=== PATIENT | male | born 1935 | race Caucasian/White ===

== ENCOUNTER 2019-04-05 10:03 | Emergency (ER) | payer MEDICARE ==
[2019-04-05] MEDS ORDERED: SODIUM CHLORIDE 0.9% (FLUSH) 10 ML SYG IV PRN ×2 (10:15)
--- NOTE | 2019-04-05 10:20 | ED.PDOC ---
History of Present Illness - General Time Seen by Provider: 04/05/19 10:13 - History of Present Illness Initial Comments: Pt brought by the EMS for the evaluation of cardiac arrest , EMS got the call from the senior living that while suctioning from the trach pt became sob and bra dycardiac and unresponsive but when EMS reached over there pt was responsive , normal sinus rhythm on EKG strip , however pt complain of generalized abdominal pain Timing/Duration: 1/2 hour Allergies/Adverse Reactions: Allergies NO KNOWN ALLERGY Allergy (Verified 04/05/19 10:49) Review of Systems - Review of Systems Constitutional: States: no symptoms reported EENTM: States: no symptoms reported Respiratory: States: no symptoms reported Cardiology: States: no symptoms reported Gastrointestinal/Abdominal: States: abdominal pain Musculoskeletal: States: no symptoms reported Skin: States: no symptoms reported Neurological: States: no symptoms reported Hematologic/Lymphatic: States: no symptoms reported All other Systems: Reviewed and Negative Family Medical History - Family History Mother Family History: No Known Physical Exam - Physical Exam General Appearance: Alert, Anxious Eyes, Ears, Nose, Throat Exam: PERRL/EOMI Neck: non-tender, full range of motion, supple Respiratory: chest non-tender, decreased breath sounds Cardiovascular/Chest: regular rate, rhythm Gastrointestinal/Abdominal: tenderness Extremity: normal range of motion Neurologic: no motor/sensory deficits, alert, normal mood/affect Lymphatic: no adenopathy Progress - Progress Progress: 04/05/19 13:[address] Lance at [facility] who accepted the pt - EKG/XRAY/CT EKG: Sinus, no ST T wave changes XRAY: chest Xray Comments: Pneumothorax - Additional EKG/XRAY/Consults XRAY #2: chest Comments: Pneumothorax resolved Procedures - Chest Tube Right Upper Mid-Axillary Chest Chest Tube Procedure Prep: betadine prep, sterile drapes applied, sterile dressing applied Anesthesia: 1% Lidocaine [place] of Air [place]: Yes Tube Sutured to Skin: Yes Post Procedure CXR?: Yes Progress: Pneumothorax resolved after placing Chest Tube Departure - Departure Clinical Impression: Pneumothorax, SOB (shortness of breath) Disposition: Transfer to Hospital Condition: Fair Referrals: MELVA KHAN [Primary Care Provider] - 1-2 Weeks Critical Care Note - Critical Care Note Total Time (mins): 60
[2019-04-05] MEDS ORDERED: DICYCLOMINE HCL INJ 20 MG/2 ML AMP IM ONE (10:23)
--- NOTE | 2019-04-05 11:01 | RAD ---
EXAM DESCRIPTION: Chest,1 View CLINICAL HISTORY: 83 years Male, sob . Status post cardiac arrest, CPR. COMPARISON: Chest radiograph 04/03/2019 TECHNIQUE: AP portable chest. FINDINGS/IMPRESSION: Interval development of a large volume right-sided pneumothorax (occupying approximately 60% of right lung volume) with partial collapse of the right upper and lower lobes. The patient is rotated, limiting evaluation for mediastinal shift, however partial underlying tension pneumothorax component may be present (with mild leftward mediastinal shift). Mild subcutaneous emphysema along the right lower lateral chest. Left lower lung volume loss with hazy infiltrate which may represent atelectasis, pleural effusion, or pneumonia. Unchanged position of the tracheostomy tube. Prior sternotomy. The cardiac borders are obscured. No acute osseous abnormality. Critical finding: Large right-sided pneumothorax and possible need for right-sided chest tube was discussed with ED physician Dr. Joseph CARLSON via telephone at 04/05/2019 10:[address] Brandt Cortes. Electronically signed by: Brandt Cortes DO 04/05/2019 11:00 AM CDT
[2019-04-05] MEDS ORDERED: LIDOCAINE 2% 50 ML VIAL ONE (11:06)
[2019-04-05] MEDS ORDERED: MORPHINE SULFATE INJ 10 MG/ML VIAL ONE (11:50)
[2019-04-05] MEDS ORDERED: MORPHINE SULFATE INJ 10 MG/ML VIAL IV ONE ×3 (11:53→12:55)
--- NOTE | 2019-04-05 12:15 | RAD ---
EXAM DESCRIPTION: Chest,1 View CLINICAL HISTORY: 83 years Male, verify chest tube placement COMPARISON: Radiographs of the chest dated 04/05/2019. TECHNIQUE: AP radiograph of the chest was obtained. FINDINGS: Trachea is midline.The cardiomediastinal silhouette is mildly enlarged in size. The left hemithorax is not completely visualized and appears unchanged. Interval placement of right chest tube with improvement of the right-sided pneumothorax. There is persistent small pneumothorax peripherally. IMPRESSION: Interval placement of right chest tube with improvement of the right-sided pneumothorax. There is persistent small pneumothorax peripherally. Electronically signed by: Diana Kinsey MD 04/05/2019 12:14 PM CDT
[2019-04-05] MEDS ORDERED: PIPERACILLIN/TAZOBACTAM 4.5 GM in SODIUM CHLORIDE 0.9% 100ML 100 ML IVPB ONE (12:25)
[2019-04-05] MEDS ORDERED: PIPERACILLIN/TAZOBACTAM 3.375 GM in SODIUM CHLORIDE 0.9% 100ML 100 ML IVPB ONE (12:28)
--- NOTE | 2019-04-05 12:36 | RAD ---
EXAM: Chest,1 View CLINICAL INDICATION: Chest tube COMPARISON: Previous study same date FINDINGS: A single view of the chest was obtained which is limited because the left side of the chest is not included on the film. A right-sided chest tube is noted. The heart is mildly enlarged and the pulmonary vessels are mildly prominent. Post-CABG surgical changes are noted. A tracheostomy is noted. There is no pneumothorax. IMPRESSION: Limited study. Right-sided chest tube noted. Electronically signed by: Malcolm Arteaga MD 04/05/2019 12:34 PM CDT
[2019-04-05 12:46] VITALS: TEMP 98.6; O2SAT 99
[2019-04-05] MEDS ORDERED: PIPERACILLIN/TAZOBACTAM 3.375 GM VIAL IVPB ONE (12:58)
[2019-04-05] MEDS ORDERED: SODIUM CHLORIDE 0.9% 100ML 100 ML IVPB ONE (12:59)
[2019-04-05 13:40] VITALS: BP 114/72
== END 2019-04-05 13:17 | disposition short-term general hospital (02) ==
LOC: ER 10:03
DX: J93.9 Pneumothorax, unspecified (principal); R06.02 Shortness of breath; R10.9 Unspecified abdominal pain; Z93.0 Tracheostomy status
CPT/HCPCS: 36415; 71045; 80048; 80076; 81001; 82550; 82553; 83605; 83880; 84484; 85025; 85379; 85610; 85730; 87040; 87086; 93005; 94002; 94760; 94770; J0500; J2270; J2543; J7050

== ENCOUNTER 2019-05-30 09:20 | Emergency (ER) | payer MEDICARE ==
[2019-05-30] MEDS ORDERED: SODIUM CHLORIDE 0.9% (FLUSH) 10 ML SYG IV PRN (09:39)
--- NOTE | 2019-05-30 09:42 | ED.PDOC ---
History of Present Illness - General Chief Complaint: Neuro Symptoms/Deficits Stated Complaint: Confused, lethargic, hematuria Time Seen by Provider: 05/30/19 09:27 Source: patient, EMS - History of Present Illness Initial Comments: 84 yo M with PMH sig for HLD, HTN, CAD, CHF, COPD, CKD, with tracheostomy who [facility]. Pt is alert and oriented, denies any pain or sx at this time. Per EMS, pt is alert and oriented at baseline however today was more tired than usual and not answering questions to his baseline. His urinary catheter was leaking yesterday and they exchanged it at the [facility], it has been draining but bloody since that time. Recently started on Levaquin for pleural effusions per EMS. Per RN, high WBC count on labs from [facility]. Pt denies f/c, cough, CP, SOB, abd pain, n/v/d. Allergies/Adverse Reactions: Allergies NO KNOWN ALLERGY Allergy (Verified 04/05/19 10:49) Review of Systems - Review of Systems Constitutional: Denies: chills, fever EENTM: Denies: blurred vision, double vision Respiratory: Denies: cough, short of breath Cardiology: Denies: chest pain, palpitations Gastrointestinal/Abdominal: Denies: abdominal pain, diarrhea, nausea, vomiting Genitourinary: States: hematuria. Denies: discharge Musculoskeletal: Denies: back pain, neck pain Skin: Denies: change in color, rash Neurological: Denies: headache, numbness, weakness Past Medical History (General) - Social History Hx Tobacco Use: Yes Family Medical History - Family History Mother Family History: No Known Physical Exam - Physical Exam General Appearance: Alert, No apparent distress, Well Developed, Well Nourished Eye Exam: bilateral normal Ears, Nose, Throat: hearing grossly normal Neck: full range of motion, supple, other - tach in place, c/d/i Respiratory: chest non-tender, no respiratory distress, no accessory muscle use, decreased breath sounds Cardiovascular/Chest: normal peripheral pulses, regular rate, rhythm, no gallop, no JVD, no murmur Peripheral Pulses: radial,right: 2+, radial,left: 2+ Gastrointestinal/Abdominal: non tender, soft, no organomegaly, no pulsatile mass, other - Urinary catheter in place, hematuria present Extremity: normal range of motion, non-tender, pedal edema - 1+ pitting, symmetric BLE 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 05/30/19 10:40 Pt is now complaining of pain all over, stating they did not give him his morning gout medication and he needs it. RN called [facility], they states he was given all of his morning medication. This is not normal for him to be disoriented like this. Pts labs show leukocytosis with bandemia, elevated LFTS, will obtain CT abd/pelvis. BNP is elevated, edema on exam, will give lasix. 05/30/19 11:57 Pt had episode of hypotension after lasix and feeling ill and diaphoretic, given 250cc, pressure improving and pt feeling improved, will give another 205cc bolus and reassess. Likely third spacing however intravascularly dry. 05/30/19 12:20 Continued with fluid resuscitation, BP significantly improved. 05/30/19 12:48 Discussed with [facility] ED physician, accepts for transfer. 05/30/19 13:54 Transport team here, BP stable, pt is well appearing, NAD. Tripp was exchanged, little urine outpt since that time, minimal hematuria in previous bag. Lanie Richmond MD Emergency Medicine Physician Billing Number [id number] - Results/Orders Results/Orders: Laboratory Results - last 24 hr 05/30/19 05/30/19 05/30/19 09:39 09:40 09:40 WBC RBC Hgb Hct MCV MCH MCHC RDW Plt Count MPV Absolute Neuts (auto) Absolute Lymphs (auto) Absolute Monos (auto) Absolute Eos (auto) Absolute Basos (auto) Neutrophils % Neutrophils % (Manual) Lymphocytes % Lymphocytes % (Manual) Monocytes % Monocytes % (Manual) Eosinophils % Basophils % Band Neutrophils Metamyelocytes Nucleated RBCs Platelet Estimate Polychromasia Anisocytosis PT INR PTT (SP) pCO2 37 pO2 81 L HCO3 20.6 ABG pH 7.360 ABG O2 Saturation 96.4 ABG Base Excess -3.8 ABG Deoxyhemoglobin 3.6 Oxyhemoglobin % 94.0 Carboxyhemoglobin % 0.4 L Methemoglobin % Sat 2.0 H Calc Total Hemoglobin 11.7 L Sodium Potassium Chloride Carbon Dioxide Anion Gap BUN Creatinine BUN/Creatinine Ratio Random Glucose Serum Osmolality Lactic Acid Calcium Total Bilirubin AST ALT Alkaline Phosphatase Troponin I 0.05 B-Natriuretic Peptide 570.0 H* Serum Total Protein Albumin Globulin Albumin/Globulin Ratio 05/30/19 05/30/19 05/30/19 09:45 09:50 09:50 WBC 34.0 H* RBC 3.49 L Hgb 10.7 L Hct 33.7 L MCV 96.7 H MCH 30.8 MCHC 31.9 L RDW 15.9 H Plt Count 150 MPV 9.7 Absolute Neuts (auto) 32.60 H Absolute Lymphs (auto) 0.50 L Absolute Monos (auto) 0.70 Absolute Eos (auto) 0.00 Absolute Basos (auto) 0.10 Neutrophils % 95.9 H Neutrophils % (Manual) 55.0 Lymphocytes % 1.5 L Lymphocytes % (Manual) 3.0 Monocytes % 2.2 Monocytes % (Manual) 1.0 Eosinophils % 0.1 L Basophils % 0.3 Band Neutrophils 34.0 H* Metamyelocytes 7.0 H Nucleated RBCs 1.0 Platelet Estimate Normal Polychromasia 1+ Anisocytosis 2+ PT 11.6 H INR 1.16 H PTT (SP) 31.3 pCO2 pO2 HCO3 ABG pH ABG O2 Saturation ABG Base Excess ABG Deoxyhemoglobin Oxyhemoglobin % Carboxyhemoglobin % Methemoglobin % Sat Calc Total Hemoglobin Sodium Potassium Chloride Carbon Dioxide Anion Gap BUN Creatinine BUN/Creatinine Ratio Random Glucose Serum Osmolality Lactic Acid 7.6 H* Calcium Total Bilirubin AST ALT Alkaline Phosphatase Troponin I B-Natriuretic Peptide Serum Total Protein Albumin Globulin Albumin/Globulin Ratio 05/30/19 09:50 WBC RBC Hgb Hct MCV MCH MCHC RDW Plt Count MPV Absolute Neuts (auto) Absolute Lymphs (auto) Absolute Monos (auto) Absolute Eos (auto) Absolute Basos (auto) Neutrophils % Neutrophils % (Manual) Lymphocytes % Lymphocytes % (Manual) Monocytes % Monocytes % (Manual) Eosinophils % Basophils % Band Neutrophils Metamyelocytes Nucleated RBCs Platelet Estimate Polychromasia Anisocytosis PT INR PTT (SP) pCO2 pO2 HCO3 ABG pH ABG O2 Saturation ABG Base Excess ABG Deoxyhemoglobin Oxyhemoglobin % Carboxyhemoglobin % Methemoglobin % Sat Calc Total Hemoglobin Sodium 137 Potassium 4.5 Chloride 96 L Carbon Dioxide 22 Anion Gap 23.5 H BUN 47 H Creatinine 2.65 H BUN/Creatinine Ratio 17.7 Random Glucose 180 H Serum Osmolality 290.6 Lactic Acid Calcium 8.6 Total Bilirubin 1.9 H AST 158 H ALT 126 H Alkaline Phosphatase 177 H Troponin I B-Natriuretic Peptide Serum Total Protein 5.8 L Albumin 2.4 L Globulin 3.4 Albumin/Globulin Ratio 0.7 L CXR: EXAM: XR Chest, 1 View CLINICAL HISTORY: ams, r/o infection TECHNIQUE: Frontal view of the chest. COMPARISON: 04/05/2019. FINDINGS: Limitations: None. Lungs: Persistent but improved consolidation identified in the lower left lung. There is new, mild consolidation right lung base. Pleural space: Small bilateral pleural effusions probable. No pneumothorax. Heart: Stable cardiac enlargement. Mediastinum: Unremarkable. Bones/joints: Unremarkable. Tubes, lines and devices: Right chest tube removed. Tracheostomy unchanged. IMPRESSION: 1. Right basilar atelectasis or pneumonia present. 2. Persistent but improved consolidation left lung base. 3. Small bilateral pleural effusions. Electronically signed by: Esme Ashford MD 05/30/2019 11:[address] head: PROCEDURE: CT Head Without Intravenous Contrast CLINICAL INDICATION: The patient is 84 years old and is Male; ams MAIN TECHNIQUE: Axial computed tomography images of the head/brain without intravenous contrast. Sagittal and coronal reformatted images were created and reviewed. This CT exam was performed using one or more of the following dose reduction techniques: automated exposure control, adjustment of the mA and/or kV according to patient size, and/or use of iterative reconstruction technique. COMPARISON: No relevant prior studies available. FINDINGS: ARTIFACTS: The study is mildly compromised by image degradation from motion artifact.. 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 It is best seen on image 34 of series 5. There are mild patchy areas of hypodensity in the periventricular white matter, extending into the centrum semiovale and wayne radiata bilaterally, which are felt to represent the sequela of small vessel ischemic disease (microangiopathy). Early infarcts within the first 12 hours may not be visible on noncontrast CT. The ribeiro/white matter differentiation is intact. NO intra-or extra-axial fluid collections are seen. MIDLINE SHIFT: There is NO midline shift. VENTRICLES: There is mild global atrophy with prominence of the ventricles, sulci and basilar cisterns. BONES/JOINTS: Unremarkable. No calvarial fracture. SOFT TISSUES: The soft tissues of the scalp are unremarkabl e. VASCULATURE: Intracranial vascular calcifications are noted. SINUSES: The visualized paranasal sinuses are clear. MASTOID AIR CELLS: Unremarkable as visualized. No mastoid effusion. ORBITS: There has been bilateral cataract surgery. IMPRESSION: 1. The study is mildly compromised by image degradation from motion artifact.. 2. No acute intracranial abnormality is identified. 3. 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 It is best seen on image 34 of series 5. Electronically signed by: Fidle Wilde MD 05/30/2019 12:[address] abd/pelvis: PROCEDURE: CT Abdomen and Pelvis Without Intravenous Contrast CLINICAL INDICATION: The patient is 84 years old and is Male; abd pain MAIN TECHNIQUE: Axial computed tomography images of the abdomen and pelvis without intravenous contrast. Sagittal and coronal reformatted images were created and reviewed. As a consequence of the lack of intravenous contrast, there is limited evaluation of the organs and soft tissues. This CT exam was performed using one or more of the following dose reduction techniques: automated exposure control, adjustment of the mA and/or kV according to patient size, and/or use of iterative reconstruction technique. COMPARISON: No relevant prior studies available. FINDINGS: ARTIFACTS: Patient arm positioning results in beam hardening artifact which degrades image quality. The study is mildly compromised by image degradation from motion artifact.. LIMITATIONS: The study is compromised by patient body habitus. LUNG BASES: There is patchy bibasilar atelectasis noted. PLEURAL SPACE: There is a small RIGHT pleural effusion identified. HEART: The heart size is enlarged. ABDOMEN: LIVER: Unremarkable noncontrast appearance of the liver. GALLBLADDER AND BILE DUCTS: There are postsurgical changes from prior cholecystectomy in the gallbladder fossa. No ductal dilation. PANCREAS: There are complete fatty involutional changes of the pancreas. NO findings to suggest pancreatitis. No ductal dilation. SPLEEN: There is splenomegaly identified. The spleen measures 14 cm in CRANIOCAUDAL dimension. ADRENALS: Unremarkable. No mass. KIDNEYS AND URETERS: There is no evidence of nephrolithiasis or ureteral obstruction bilaterally on this noncontrast CT. Mild bilateral renal atrophy. Probable exophytic RIGHT interpolar renal cyst measuring 3 cm. STOMACH AND BOWEL: The stomach is filled with fluid. There is no evidence of diverticulitis. There is no evidence of bowel obstruction. There is No oral contrast opacifying the bowel. There is diverticulosis coli without diverticulitis. Large stool ball in the rectum. PELVIS: APPENDIX: The appendix is visualized and is normal in appearance. BLADDER: There is a Tripp catheter decompressing the urinary bladder. No stones. REPRODUCTIVE: Unremarkable as visualized. ABDOMEN and PELVIS: INTRAPERITONEAL SPACE: Unremarkable. No free air. No significant fluid collection. BONES/JOINTS: Multiple LEFT anterior costochondral cartilage junction fractures of the lower ribs. These appear to be healing. There are median sternotomy wires identified in the midline attesting to prior cardiac surgery. There are degenerative changes of the spine identified. SOFT TISSUES: There is rectus diastases of the anterior abdominal wall. VASCULATURE: There are atheromatous vascular calcifications of the aortoiliac system. No abdominal aortic aneurysm. LYMPH NODES: Unremarkable. No significant retroperitoneal or pelvic lymphadenopathy. TUBES, LINES AND DEVICES: There is a percutaneous gastr ostomy tube noted. OTHER FINDINGS: There is elevation of the LEFT hemidiaphragm. IMPRESSION: 1. There is a small RIGHT pleural effusion identified. 2. There is no evidence of nephrolithiasis or ureteral obstruction bilaterally on this noncontrast CT. 3. Multiple LEFT anterior costochondral cartilage junction fractures of the lower ribs. These appear to be healing. 4. There is splenomegaly identified. The spleen measures 14 cm in CRANIOCAUDAL dimension. 5. Limitations include mild motion artifact, noncontrast technique, body habitus and beam hardening from arm positioning. 6. No prior studies are available at this time for comparison, and if they can be made available, it would be recommended for better evaluation. Electronically signed by: Fidel Wilde MD 12:16 PM RADIOLOGIST PHYSICIAN Vital Signs - 24 hr 05/30/19 05/30/19 05/30/19 09:39 09:41 10:20 Temperature 97.7 F Pulse Rate [ 83 98 H Right Radial] Respiratory 18 18 Rate Respiratory 30 H Rate [Volume Control Data] Blood Pressure 148/124 66/40 [Right Arm] O2 Sat by Pulse 96 95 Oximetry 05/30/19 05/30/19 05/30/19 10:35 11:00 11:20 Temperature 97.2 F L Pulse Rate [ 73 99 H 95 H Right Radial] Respiratory 18 18 18 Rate Respiratory Rate [Volume Control Data] Blood Pressure 68/40 64/44 64/44 [Right Arm] O2 Sat by Pulse 95 95 98 Oximetry 05/30/19 05/30/19 12:20 13:19 Temperature 97.7 F 97.0 F L Pulse Rate [ 79 92 H Right Radial] Respiratory 18 18 Rate Respiratory 25 H Rate [Volume Control Data] Blood Pressure 88/46 119/54 [Right Arm] O2 Sat by Pulse 97 96 Oximetry - EKG/XRAY/CT EKG: Sinus Comments: PVC, wondering baseline Departure - Departure Clinical Impression: Bandemia Closed fracture of rib with routine healing Qualifiers: Rib fracture type: multiple ribs Laterality: unspecified laterality Qualified Code(s): S22.49XD - Multiple fractures of ribs, unspecified side, subsequent encounter for fracture with routine healing Pneumonia Qualifiers: Pneumonia type: due to unspecified organism Laterality: unspecified laterality Lung location: unspecified part of lung Qualified Code(s): J18.9 - Pneumonia, unspecified organism CKD (chronic kidney disease) Qualifiers: Chronic kidney disease stage: unspecified stage Qualified Code(s): N18.9 - Chronic kidney disease, unspecified Time of Disposition: 12:48 Disposition: Transfer to Hospital Condition: Fair
[2019-05-30] MEDS ORDERED: CEFEPIME 2 GM in SODIUM CHL 0.9% 50ML MIN-BAG+ 50 ML IVPB ONE (09:58)
[2019-05-30] MEDS ORDERED: CEFEPIME 2 GM VIAL ONE (10:02)
[2019-05-30] MEDS ORDERED: SODIUM CHL 0.9% 50ML MIN-BAG+ 50 ML IVPB ONE (10:02)
[2019-05-30] MEDS ORDERED: ACETAMINOPHEN IV 1000MG 1,000 MG in PREMIX BOTTLE 1 BOTTLE IVPB ONE (10:05)
[2019-05-30] MEDS ORDERED: FUROSEMIDE INJ 20 MG/2 ML VIAL IV ONE (10:55)
[2019-05-30] MEDS ORDERED: ACETAMINOPHEN IV 1000MG 100 ML ONE (11:17)
--- NOTE | 2019-05-30 11:23 | RAD ---
EXAM: XR Chest, 1 View CLINICAL HISTORY: ams, r/o infection TECHNIQUE: Frontal view of the chest. COMPARISON: 04/05/2019. FINDINGS: Limitations: None. Lungs: Persistent but improved consolidation identified in the lower left lung. There is new, mild consolidation right lung base. Pleural space: Small bilateral pleural effusions probable. No pneumothorax. Heart: Stable cardiac enlargement. Mediastinum: Unremarkable. Bones/joints: Unremarkable. Tubes, lines and devices: Right chest tube removed. Tracheostomy unchanged. IMPRESSION: 1. Right basilar atelectasis or pneumonia present. 2. Persistent but improved consolidation left lung base. 3. Small bilateral pleural effusions. Electronically signed by: Esme Ashford MD 05/30/2019 11:21 AM TASSEL SNIPPER
[2019-05-30] MEDS ORDERED: SODIUM CHLORIDE 0.9% 1000ML 1,000 ML IVS ONE ×2 (11:39→13:20)
--- NOTE | 2019-05-30 12:08 | CT ---
PROCEDURE: CT Head Without Intravenous Contrast CLINICAL INDICATION: The patient is 84 years old and is Male; ams MAIN TECHNIQUE: Axial computed tomography images of the head/brain without intravenous contrast. Sagittal and coronal reformatted images were created and reviewed. This CT exam was performed using one or more of the following dose reduction techniques: automated exposure control, adjustment of the mA and/or kV according to patient size, and/or use of iterative reconstruction technique. COMPARISON: No relevant prior studies available. FINDINGS: ARTIFACTS: The study is mildly compromised by image degradation from motion artifact.. 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 It is best seen on image 34 of series 5. There are mild patchy areas of hypodensity in the periventricular white matter, extending into the centrum semiovale and wayne radiata bilaterally, which are felt to represent the sequela of small vessel ischemic disease (microangiopathy). Early infarcts within the first 12 hours may not be visible on noncontrast CT. The ribeiro/white matter differentiation is intact. NO intra-or extra-axial fluid collections are seen. MIDLINE SHIFT: There is NO midline shift. VENTRICLES: There is mild global atrophy with prominence of the ventricles, sulci and basilar cisterns. BONES/JOINTS: Unremarkable. No calvarial fracture. SOFT TISSUES: The soft tissues of the scalp are unremarkable. VASCULATURE: Intracranial vascular calcifications are noted. SINUSES: The visualized paranasal sinuses are clear. MASTOID AIR CELLS: Unremarkable as visualized. No mastoid effusion. ORBITS: There has been bilateral cataract surgery. IMPRESSION: 1. The study is mildly compromised by image degradation from motion artifact.. 2. No acute intracranial abnormality is identified. 3. 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 It is best seen on image 34 of series 5. Electronically signed by: Fidel Wilde MD 05/30/2019 12:07 PM MARKETING INFORMATION COORDINATOR
--- NOTE | 2019-05-30 12:18 | CT ---
PROCEDURE: CT Abdomen and Pelvis Without Intravenous Contrast CLINICAL INDICATION: The patient is 84 years old and is Male; abd pain MAIN TECHNIQUE: Axial computed tomography images of the abdomen and pelvis without intravenous contrast. Sagittal and coronal reformatted images were created and reviewed. As a consequence of the lack of intravenous contrast, there is limited evaluation of the organs and soft tissues. This CT exam was performed using one or more of the following dose reduction techniques: automated exposure control, adjustment of the mA and/or kV according to patient size, and/or use of iterative reconstruction technique. COMPARISON: No relevant prior studies available. FINDINGS: ARTIFACTS: Patient arm positioning results in beam hardening artifact which degrades image quality. The study is mildly compromised by image degradation from motion artifact.. LIMITATIONS: The study is compromised by patient body habitus. LUNG BASES: There is patchy bibasilar atelectasis noted. PLEURAL SPACE: There is a small RIGHT pleural effusion identified. HEART: The heart size is enlarged. ABDOMEN: LIVER: Unremarkable noncontrast appearance of the liver. GALLBLADDER AND BILE DUCTS: There are postsurgical changes from prior cholecystectomy in the gallbladder fossa. No ductal dilation. PANCREAS: There are complete fatty involutional changes of the pancreas. NO findings to suggest pancreatitis. No ductal dilation. SPLEEN: There is splenomegaly identified. The spleen measures 14 cm in CRANIOCAUDAL dimension. ADRENALS: Unremarkable. No mass. KIDNEYS AND URETERS: There is no evidence of nephrolithiasis or ureteral obstruction bilaterally on this noncontrast CT. Mild bilateral renal atrophy. Probable exophytic RIGHT interpolar renal cyst measuring 3 cm. STOMACH AND BOWEL: The stomach is filled with fluid. There is no evidence of diverticulitis. There is no evidence of bowel obstruction. There is No oral contrast opacifying the bowel. There is diverticulosis coli without diverticulitis. Large stool ball in the rectum. PELVIS: APPENDIX: The appendix is visualized and is normal in appearance. BLADDER: There is a Tripp catheter decompressing the urinary bladder. No stones. REPRODUCTIVE: Unremarkable as visualized. ABDOMEN and PELVIS: INTRAPERITONEAL SPACE: Unremarkable. No free air. No significant fluid collection. BONES/JOINTS: Multiple LEFT anterior costochondral cartilage junction fractures of the lower ribs. These appear to be healing. There are median sternotomy wires identified in the midline attesting to prior cardiac surgery. There are degenerative changes of the spine identified. SOFT TISSUES: There is rectus diastases of the anterior abdominal wall. VASCULATURE: There are atheromatous vascular calcifications of the aortoiliac system. No abdominal aortic aneurysm. LYMPH NODES: Unremarkable. No significant retroperitoneal or pelvic lymphadenopathy. TUBES, LINES AND DEVICES: There is a percutaneous gastrostomy tube noted. OTHER FINDINGS: There is elevation of the LEFT hemidiaphragm. IMPRESSION: 1. There is a small RIGHT pleural effusion identified. 2. There is no evidence of nephrolithiasis or ureteral obstruction bilaterally on this noncontrast CT. 3. Multiple LEFT anterior costochondral cartilage junction fractures of the lower ribs. These appear to be healing. 4. There is splenomegaly identified. The spleen measures 14 cm in CRANIOCAUDAL dimension. 5. Limitations include mild motion artifact, noncontrast technique, body habitus and beam hardening from arm positioning. 6. No prior studies are available at this time for comparison, and if they can be made available, it would be recommended for better evaluation. Electronically signed by: Fidel Wilde MD 05/30/2019 12:16 PM INSURANCE CLAIMS CLERK
[2019-05-30 13:22] VITALS: TEMP 97
[2019-05-30 14:31] VITALS: BP 110/61; O2SAT 99
== END 2019-05-30 13:50 | disposition short-term general hospital (02) ==
LOC: ER 09:20
DX: J18.9 Pneumonia, unspecified organism (principal); N18.9 Chronic kidney disease, unspecified; D72.825 Bandemia; S22.49XD Multiple fractures of ribs, unspecified side, subsequent encounter for fracture with routine healing; I49.3 Ventricular premature depolarization; R41.82 Altered mental status, unspecified; R19.7 Diarrhea, unspecified; R11.2 Nausea with vomiting, unspecified; E78.00 Pure hypercholesterolemia, unspecified; I25.10 Atherosclerotic heart disease of native coronary artery without angina pectoris; I50.9 Heart failure, unspecified; J44.9 Chronic obstructive pulmonary disease, unspecified; I13.0 Hypertensive heart and chronic kidney disease with heart failure and stage 1 through stage 4 chronic kidney disease, or unspecified chronic kidney disease; Z93.0 Tracheostomy status; Z87.891 Personal history of nicotine dependence
CPT/HCPCS: 36415; 36600; 70450; 71045; 74176; 80053; 82803; 82805; 83605; 83880; 84484; 85025; 85610; 85730; 87040; 93005; 94002; J0692; J1940; J7030; J7050

== ENCOUNTER 2019-06-10 08:52 | Emergency (ER) | payer MEDICARE ==
--- NOTE | 2019-06-10 09:14 | ED.PDOC ---
History of Present Illness - General Chief Complaint: Cardiovascular Problem Stated Complaint: bilateral arm swelling Time Seen by Provider: 06/10/19 08:57 Source: patient Exam Limitations: no limitations - History of Present Illness Initial Comments: 84 yo M with hx of HLD, HTN, CAD, CHF, CKD, with trach, feeding tube, urinary catheter in place who presents for bilateral UE swelling onset since being d/c home from [facility] last weekend after stay for sepsis. Pt was seen here Reports the swelling is only getting worse. Endorses BLE edema as well. Denies f/c, cough, congestion, CP, SOB, abd pain, n/v/d, complications with trach, feeding tube, urinary catheter. Allergies/Adverse Reactions: Allergies NO KNOWN ALLERGY Allergy (Verified 04/05/19 10:49) Home Medications: Ambulatory Orders Acetaminophen [Pain Relief Extra Strengt] 500 mg PEG PRN 06/10/19 Allopurinol 300 mg PEG DAILY 06/10/19 Amiodarone HCl [Pacerone] 200 mg PEG DAILY 06/10/19 Ascorbic Acid [Vitamin C] 500 mg PEG DAILY 06/10/19 Atorvastatin Calcium [Lipitor] 20 mg PEG BEDTIME 06/10/19 Benzonatate Perles [Tessalon Perles] 100 mg PO TID 06/10/19 Bisacodyl Suppository 10Mg [Dulcolax Suppository 10mg] 1 ea AR PRN 06/10/19 Buspirone HCl [Buspirone Hydrochloride] 5 mg PEG TID 06/10/19 Famotidine 20 mg PO DAILY 06/10/19 Fluticasone Propionate (Nasal) [Fluticasone Propionate Na] 50 mcg NA DAILY 06/10/19 Furosemide 20 mg PO DAILY 06/10/19 Ibuprofen 800 mg PEG PRN 06/10/19 LORazepam [Ativan] 0.25 mg PO .TIDAC 06/10/19 Lactobacillus [Acidophilus Lactobacilli] 1 cap PEG DAILY 06/10/19 Lactulose 30 ml PEG PRN 06/10/19 Melatonin 5 mg PEG BEDTIME 06/10/19 Meropenem 500 mg IV Q12H 06/10/19 Miconazole Nitrate (Topical) [Antifungal Powder] 2 % EX BID 06/10/19 Montelukast [Singulair] 10 mg PEG BEDTIME 06/10/19 Multiple Vitamins W/ Minerals [Thera-M Enhanced] 1 tab PEG DAILY 06/10/19 Olopatadine HCl [Olopatadine Hydrochloride] 0.1 % BOTH_EYES BID 06/10/19 Polyethylene Glycol 3350 [Miralax] 17 gm PEG DAILY 06/10/19 Potassium Chloride [K-Tab] 10 meq PEG DAILY 06/10/19 Promethazine HCl 25 mg PEG PRN 06/10/19 Sennosides-Docusate Sodium [Docusate Sodium & Senna 8.6-50 mg] 1 tab PEG PRN 06/10/19 Simethicone 80 mg PEG BID 06/10/19 Spironolactone 25 mg PO DAILY 06/10/19 Thiamine HCl 100 mg PEG DAILY 06/10/19 Vancomycin HCl [Vancocin HCl] 125 mg PEG Q6H 06/10/19 guaiFENesin 100 MG/5 ML [Robitussin] 10 ml PEG TID 06/10/19 Review of Systems - Review of Systems Constitutional: Denies: chills, fever EENTM: Denies: nose congestion, throat pain Respiratory: Denies: cough, short of breath Cardiology: States: edema. Denies: chest pain, palpitations, syncope Gastrointestinal/Abdominal: Denies: abdominal pain, diarrhea, nausea, vomiting Genitourinary: Denies: hematuria, pain Musculoskeletal: States: other - Edema to all extremities. Denies: back pain, neck pain Skin: Denies: lesions, rash Neurological: Denies: headache, numbness, weakness Past Medical History (General) - Patient Medical History Hx Stroke: No Hx of COPD: Yes Hx Cardiac Disorders: Yes - Hx AR; hyperlipidemia Hx Congestive Heart Failure: Yes Hx Hypertension: Yes Hx Diabetes: Yes Hx Renal Disease: Yes - Chronic kidney disease, Stage 3 - Vaccination History Hx Influenza Vaccination: Yes Hx Pneumococcal Vaccination: Yes - Social History Hx Tobacco Use: Yes - Activities of Daily Living Care Home/Assisted Living (if applicable):: [facility] Family Medical History - Family History Mother Family History: No Known Physical Exam - Physical Exam General Appearance: Alert, No apparent distress, Well Developed, Well Nourished Eye Exam: bilateral normal Ears, Nose, Throat: hearing grossly normal, normal ENT inspection Neck: non-tender, full range of motion, supple, other - Trach in place, c/d/i Respiratory: chest non-tender, no respiratory distress, no accessory muscle use, decreased breath sounds - bases Cardiovascular/Chest: normal peripheral pulses, regular rate, rhythm, no gallop, no murmur Peripheral Pulses: radial,right: 2+, radial,left: 2+ Gastrointestinal/Abdominal: non tender, soft, no organomegaly, no pulsatile mass, other - Feeding tube in place, c/d/i. Scattered ecchymotic areas noted. Anasarca present. Extremity: normal range of motion, normal capillary refill, pedal edema - 2+ pitting edema symmetric to all extremities Neurologic: no motor/sensory deficits, alert, normal mood/affect, oriented x 3 Skin Exam: other - Dark erythema noted to BLE symmetrically Progress - Progress Progress: 06/10/19 10:56 Discussed with midlevel Matt, who is familiar with the pt. He is on a vent at night and therefore will need to be transferred to [facility]. 06/10/19 11:[address] [place], ED physician at [facility], accepts pt for transfer. Pt presented with anasarca, given lasix in ED, no resp distress, saturating well on trach collar per baseline, mild CKD. Transferred for further management and diuresis. Lanie Richmond MD Emergency Medicine Physician Billing Number [id number] - Results/Orders Results/Orders: Laboratory Results - last 24 hr 06/10/19 06/10/19 06/10/19 09:30 09:30 09:30 WBC 8.5 RBC 3.35 L Hgb 10.7 L Hct 32.6 L MCV 97.3 H MCH 32.1 H MCHC 33.0 RDW 17.2 H Plt Count 137 MPV 9.6 Absolute Neuts (auto) 6.30 Absolute Lymphs (auto) 1.20 Absolute Monos (auto) 0.70 Absolute Eos (auto) 0.30 Absolute Basos (auto) 0.10 Neutrophils % 73.5 Lymphocytes % 14.5 L Monocytes % 7.8 Eosinophils % 3.2 Basophils % 1.0 PT 10.2 INR 1.02 PTT (SP) 24.8 Sodium 141 Potassium 4.0 Chloride 100 L Carbon Dioxide 36 H Anion Gap 9.0 L BUN 33 H Creatinine 1.49 H BUN/Creatinine Ratio 22.1 H Random Glucose 185 H Serum Osmolality 293.3 Calcium 8.8 Total Bilirubin 0.6 AST 15 ALT 25 Alkaline Phosphatase 73 Troponin I B-Natriuretic Peptide Serum Total Protein 5.5 L Albumin 2.7 L Globulin 2.8 Albumin/Globulin Ratio 1.0 L 06/10/19 06/10/19 09:30 09:30 WBC RBC Hgb Hct MCV MCH MCHC RDW Plt Count MPV Absolute Neuts (auto) Absolute Lymphs (auto) Absolute Monos (auto) Absolute Eos (auto) Absolute Basos (auto) Neutrophils % Lymphocytes % Monocytes % Eosinophils % Basophils % PT INR PTT (SP) Sodium Potassium Chloride Carbon Dioxide Anion Gap BUN Creatinine BUN/Creatinine Ratio Random Glucose Serum Osmolality Calcium Total Bilirubin AST ALT Alkaline Phosphatase Troponin I 0.02 B-Natriuretic Peptide 227.0 H* Serum Total Protein Albumin Globulin Albumin/Globulin Ratio CXR: EXAM DESCRIPTION: Chest,1 View CLINICAL HISTORY: 84 years Male, volume overload COMPARISON: Previous chest x-ray May 30, 2019 TECHNIQUE: AP portable chest. FINDINGS: Heart size is large with increased pulmonary vascularity. Extensive bilateral perihilar and lower lobe infiltrates or edema with moderate pleural effusions bilaterally. Tracheostomy tube tip is at the level of the clavicles approximately 5.9 cm above the bart. Sternotomy wires are present. No pulmonary mass or worrisome nodule. No pneumothorax. Bones are unremarkable for age. IMPRESSION: Large heart with vascular congestion and bilateral pulmonary infiltrates or edema. Electronically signed by: Bola Britton MD 06/10/2019 9:54 AM WHEEL CLEANER RUE US: EXAM DESCRIPTION: Venous,Upper Extremity RT: ULTRASOUND. CLINICAL HISTORY: swelling. Right upper extremity. COMPARISON: None Available. TECHNIQUE: Two -dimensional and doppler sonographic evaluation of the deep venous system of the right upper extremity. FINDINGS: Doppler evaluation shows color flow and venous waveform in the right internal jugular vein. The vein is deep in the soft tissues and could not be compressed. No echogenic thrombus on grayscale imaging. Doppler evaluation shows normal color flow and normal phasicity and augmentation of the right subclavian, axillary, basilic, cephalic, brachial, radial vein and ulnar vein. The remaining right upper extremity deep veins showed normal occlusion with transducer pressure. Two-dimensional survey showed no echogenic thrombus within these veins. IMPRESSION: Duplex ultrasound evaluation of the right upper extremity deep venous system showing no thrombosis . Difficult evaluation of the right internal jugular vein due to depth within the tissues, limiting compression. Normal Doppler color and waveform of the vein. Electronically signed by: Timothy Valencia MD 06/10/2019 10:53 AM WHEEL CLEANER LUE US: pending, pt was too tired to complete it at the same time at the [facility] Vital Signs - 24 hr 06/10/19 06/10/19 06/10/19 09:00 09:05 10:00 Temperature 96.2 F L Pulse Rate [ 93 H 88 Right Ulnar] Respiratory 18 18 Rate Blood Pressure 188/93 141/76 [Right Arm] O2 Sat by Pulse 97 96 96 Oximetry 06/10/19 06/10/19 11:00 12:39 Temperature 96.7 F L Pulse Rate [ 108 H 108 H Right Ulnar] Respiratory 22 22 Rate Blood Pressure 147/101 164/101 [Right Arm] O2 Sat by Pulse 95 97 Oximetry - EKG/XRAY/CT EKG: Fibrillation, RBBB - incomplete, nonspecific ST T wave Chg Comments: Rate 107, PVC vs aberrantly conducted complex Departure - Departure Clinical Impression: Anasarca Volume overload Qualifiers: Hypervolemia type: unspecified Qualified Code(s): E87.70 - Fluid overload, unspecified A-fib Qualifiers: Atrial fibrillation type: unspecified Qualified Code(s): I48.91 - Unspecified atrial fibrillation CKD (chronic kidney disease) Qualifiers: Chronic kidney disease stage: unspecified stage Qualified Code(s): N18.9 - Chronic kidney disease, unspecified Time of Disposition: 10:56 Disposition: Transfer to Hospital Condition: Fair Referrals: MELVA KHAN [Primary Care Provider] - 1-2 Weeks Home Medications: Ambulatory Orders Acetaminophen [Pain Relief Extra Strengt] 500 mg PEG PRN 06/10/19 Allopurinol 300 mg PEG DAILY 06/10/19 Amiodarone HCl [Pacerone] 200 mg PEG DAILY 06/10/19 Ascorbic Acid [Vitamin C] 500 mg PEG DAILY 06/10/19 Atorvastatin Calcium [Lipitor] 20 mg PEG BEDTIME 06/10/19 Benzonatate Perles [Tessalon Perles] 100 mg PO TID 06/10/19 Bisacodyl Suppository 10Mg [Dulcolax Suppository 10mg] 1 ea AR PRN 06/10/19 Buspirone HCl [Buspirone Hydrochloride] 5 mg PEG TID 06/10/19 Famotidine 20 mg PO DAILY 06/10/19 Fluticasone Propionate (Nasal) [Fluticasone Propionate Na] 50 mcg NA DAILY 06/10/19 Furosemide 20 mg PO DAILY 06/10/19 Ibuprofen 800 mg PEG PRN 06/10/19 LORazepam [Ativan] 0.25 mg PO .TIDAC 06/10/19 Lactobacillus [Acidophilus Lactobacilli] 1 cap PEG DAILY 06/10/19 Lactulose 30 ml PEG PRN 06/10/19 Melatonin 5 mg PEG BEDTIME 06/10/19 Meropenem 500 mg IV Q12H 06/10/19 Miconazole Nitrate (Topical) [Antifungal Powder] 2 % EX BID 06/10/19 Montelukast [Singulair] 10 mg PEG BEDTIME 06/10/19 Multiple Vitamins W/ Minerals [Thera-M Enhanced] 1 tab PEG DAILY 06/10/19 Olopatadine HCl [Olopatadine Hydrochloride] 0.1 % BOTH_EYES BID 06/10/19 Polyethylene Glycol 3350 [Miralax] 17 gm PEG DAILY 06/10/19 Potassium Chloride [K-Tab] 10 meq PEG DAILY 06/10/19 Promethazine HCl 25 mg PEG PRN 06/10/19 Sennosides-Docusate Sodium [Docusate Sodium & Senna 8.6-50 mg] 1 tab PEG PRN 06/10/19 Simethicone 80 mg PEG BID 06/10/19 Spironolactone 25 mg PO DAILY 06/10/19 Thiamine HCl 100 mg PEG DAILY 06/10/19 Vancomycin HCl [Vancocin HCl] 125 mg PEG Q6H 06/10/19 guaiFENesin 100 MG/5 ML [Robitussin] 10 ml PEG TID 06/10/19
[2019-06-10] MEDS ORDERED: FUROSEMIDE INJ 40 MG/4 ML VIAL IV ONE (09:19)
[2019-06-10] MEDS ORDERED: ACETAMINOPHEN IV 1000MG 1,000 MG in PREMIX BOTTLE 1 BOTTLE IVPB ONE (09:44)
--- NOTE | 2019-06-10 09:55 | RAD ---
EXAM DESCRIPTION: Chest,1 View CLINICAL HISTORY: 84 years Male, volume overload COMPARISON: Previous chest x-ray May 30, 2019 TECHNIQUE: AP portable chest. FINDINGS: Heart size is large with increased pulmonary vascularity. Extensive bilateral perihilar and lower lobe infiltrates or edema with moderate pleural effusions bilaterally. Tracheostomy tube tip is at the level of the clavicles approximately 5.9 cm above the bart. Sternotomy wires are present. No pulmonary mass or worrisome nodule. No pneumothorax. Bones are unremarkable for age. IMPRESSION: Large heart with vascular congestion and bilateral pulmonary infiltrates or edema. Electronically signed by: Bola Britton MD 06/10/2019 9:54 AM CNC OPERATOR MACHINIST
[2019-06-10] MEDS ORDERED: ACETAMINOPHEN IV 1000MG 100 ML ONE (10:05)
[2019-06-10] MEDS ORDERED: HYDROcodone 5MG/APAP 325MG 1 EA TAB PO ONE (10:55)
--- NOTE | 2019-06-10 10:55 | US ---
EXAM DESCRIPTION: Venous,Upper Extremity RT: ULTRASOUND. CLINICAL HISTORY: swelling. Right upper extremity. COMPARISON: None Available. TECHNIQUE: Two -dimensional and doppler sonographic evaluation of the deep venous system of the right upper extremity. FINDINGS: Doppler evaluation shows color flow and venous waveform in the right internal jugular vein. The vein is deep in the soft tissues and could not be compressed. No echogenic thrombus on grayscale imaging. Doppler evaluation shows normal color flow and normal phasicity and augmentation of the right subclavian, axillary, basilic, cephalic, brachial, radial vein and ulnar vein. The remaining right upper extremity deep veins showed normal occlusion with transducer pressure. Two-dimensional survey showed no echogenic thrombus within these veins. IMPRESSION: Duplex ultrasound evaluation of the right upper extremity deep venous system showing no thrombosis . Difficult evaluation of the right internal jugular vein due to depth within the tissues, limiting compression. Normal Doppler color and waveform of the vein. Electronically signed by: Timothy Valencia MD 06/10/2019 10:53 AM ARTIST RELATIONSHIP MANAGER
[2019-06-10 12:41] VITALS: BP 164/101; TEMP 96.7; O2SAT 97
--- NOTE | 2019-06-10 13:17 | US ---
EXAM DESCRIPTION: Venous,Upper Extremity LT: ULTRASOUND. CLINICAL HISTORY: swelling COMPARISON: Doppler and grayscale evaluation of the right upper extremity deep venous system earlier today. TECHNIQUE: Two -dimensional and doppler sonographic evaluation of the deep venous system of the left upper extremity. FINDINGS: Doppler evaluation shows normal color flow and normal phasicity and augmentation of the left subclavian, jugular, axillary, basilic, brachial, radial vein and ulnar vein. Left cephalic vein was not seen. The left upper extremity deep veins showed normal occlusion with transducer pressure. Two-dimensional survey showed no echogenic thrombus within these veins. IMPRESSION: Duplex ultrasound evaluation of the left upper extremity deep venous system showing no thrombosis . Electronically signed by: Timothy Valencia MD 06/10/2019 1:15 PM HOME CARE ASSOCIATE
== END 2019-06-10 12:41 | disposition short-term general hospital (02) ==
LOC: ER 08:52
DX: R60.1 Generalized edema (principal); E87.70 Fluid overload, unspecified; I48.91 Unspecified atrial fibrillation; N18.3 Chronic kidney disease, stage 3 (moderate); I45.10 Unspecified right bundle-branch block; E11.22 Type 2 diabetes mellitus with diabetic chronic kidney disease; I13.0 Hypertensive heart and chronic kidney disease with heart failure and stage 1 through stage 4 chronic kidney disease, or unspecified chronic kidney disease; I25.2 Old myocardial infarction; J44.9 Chronic obstructive pulmonary disease, unspecified; E78.5 Hyperlipidemia, unspecified; I50.9 Heart failure, unspecified; I25.10 Atherosclerotic heart disease of native coronary artery without angina pectoris; Z93.0 Tracheostomy status; Z79.899 Other long term (current) drug therapy; Z93.1 Gastrostomy status; Z87.891 Personal history of nicotine dependence
CPT/HCPCS: 36415; 71045; 80053; 83880; 84484; 85025; 85610; 85730; 93005; 93971; J1940